=== PATIENT | female | born 1980 | race American Indian/Alaskan Native ===

== ENCOUNTER 2017-11-10 08:07 | Emergency (ER) | payer SELFPAY ==
[2017-11-10 08:59] LABS: Basophils % (Auto) 1.3 % (0.0-1.8); Eosinophils % (Auto) 1.7 % (0.0-4.3); Hematocrit 40.7 % (30.3-42.9); Hemoglobin 13.6 gm/dl (10.1-14.3); Mean Corpuscular HGB Conc 33 % (30-34); Mean Corpuscular Hemoglobin 29 pg (28-32); Mean Corpuscular Volume 88 fl (79-97); Red Blood Count 4.65 M/mm3 (3.65-5.03); Red Cell Distribution Width 14.3 % (13.2-15.2); White Blood Count 5.6 K/mm3 (4.5-11.0)
[2017-11-10 09:04] LABS: Bilirubin,Urine NEG (Negative); Blood,Urine LG (Negative); Ketones,Urine NEG (Negative); Leukocyte Esterase,Urine NEG (Negative); Mucus,Urine FEW /HPF; Nitrite,Urine NEG (Negative); Protein,Urine <15 mg/dL mg/dL (Negative); Urobilinogen,Urine < 2.0 mg/dL (<2.0)
[2017-11-10 09:10] LABS: Platelet Count 150 K/mm3 (140-440)
--- NOTE | 2017-11-10 09:22 | Emergency Department Report ---
ED Female HPI - General Chief complaint: Vaginal Bleeding Stated complaint: NAUSEA/VAGINAL BLEEDING Source: patient, RN notes reviewed Mode of arrival: Ambulatory Limitations: No Limitations - History of Present Illness Initial comments: This is a 37-year-old female who was previously unknown to this provider. She presents to the ER with intermittent crampy vaginal bleeding. She reports a positive home test in September. She reports no other care. She reports that she's had been having some bleeding intermittently, and thinks that she's had a miscarriage. Her bleeding today has been going on for days so , it is crampy, it does not radiate anywhere, has no exacerbating or relieving factors. MD Complaint: vaginal bleeding -: Gradual Location: suprapubic Radiation: non-radiating Severity: mild Quality: cramping Improves with: none Worsens with: none Are you Now?: No Associated Symptoms: vaginal bleeding. denies: vaginal discharge, nausea/ vomiting, fever/chills, headaches, loss of appetite, dysuria, shortness of breath, syncope, weakness - Related Data Sexually active: Yes Previous Rx's Medication Instructions Recorded Last Taken Type Acetaminophen/Codeine [Tylenol #3] 1 tab PO Q6H PRN #20 tab 08/11/15 Unknown Rx Cyclobenzaprine [Flexeril 10 MG 10 mg PO TID PRN #30 tablet 08/11/15 Unknown Rx TAB] Ibuprofen [Motrin] 600 mg PO Q8H PRN #30 tablet 08/11/15 Unknown Rx Diazepam Tab [Valium] 5 mg PO Q8H PRN #21 tablet 08/23/15 Unknown Rx HYDROcodone/APAP 5-325 [[place] 1 each PO Q6HR PRN #20 tablet 08/23/15 Unknown Rx 5/325] Allergies Allergy/AdvReac Type Severity Reaction Status Date / Time No Known Allergies Allergy Verified 08/11/15 10:23 ED Review of Systems ROS: Stated complaint: NAUSEA/VAGINAL BLEEDING Other details as noted in HPI ED Past Medical Hx - Past Medical History Previous Medical History?: Yes Hx Hypertension: Yes Hx Congestive Heart Failure: No Hx Diabetes: No Hx Deep Vein Thrombosis: No Hx Renal Disease: No Hx Sickle Cell Disease: No Hx Seizures: No Hx Asthma: No Hx COPD: No Hx HIV: No - Surgical History Past Surgical History?: No - Social History Smoking Status: Never Smoker Substance Use Type: None - Medications Home Medications: Home Medications Medication Instructions Recorded Confirmed Last Taken Type Acetaminophen/Codeine [Tylenol #3] 1 tab PO Q6H PRN #20 tab 08/11/15 Unknown Rx Cyclobenzaprine [Flexeril 10 MG 10 mg PO TID PRN #30 tablet 08/11/15 Unknown Rx TAB] Ibuprofen [Motrin] 600 mg PO Q8H PRN #30 tablet 08/11/15 Unknown Rx Diazepam Tab [Valium] 5 mg PO Q8H PRN #21 tablet 08/23/15 Unknown Rx HYDROcodone/APAP 5-325 [[place] 1 each PO Q6HR PRN #20 tablet 08/23/15 Unknown Rx 5/325] ED Physical Exam - General Limitations: No Limitations General appearance: alert, in no apparent distress - Head Head exam: Present: atraumatic, normocephalic - Eye Eye exam: Present: normal appearance, EOMI. Absent: nystagmus - ENT ENT exam: Present: normal exam, normal orophraynx, mucous membranes moist, normal external ear exam - Neck Neck exam: Present: normal inspection, full ROM - Respiratory Respiratory exam: Present: normal lung sounds bilaterally. Absent: respiratory distress - Cardiovascular Cardiovascular Exam: Present: regular rate, normal rhythm, normal heart sounds. Absent: systolic murmur, diastolic murmur, rubs, gallop - GI/Abdominal GI/Abdominal exam: Present: soft, normal bowel sounds. Absent: distended, tenderness, guarding, rebound, rigid, pulsatile mass - External exam: Present: normal external exam Speculum exam: Present: normal speculum exam, vaginal bleeding. Absent: foreign body Bi-manual exam: Present: normal bi-manual exam, other (escorted by nurse Yana Killian). Absent: cervical motion tendernes, adnexal tenderness, adnexal mass, uterine enlargement, uterine tenderness - Extremities Exam Extremities exam: Present: normal inspection, full ROM, normal capillary refill. Absent: pedal edema, joint swelling, calf tenderness - Back Exam Back exam: Present: normal inspection, full ROM. Absent: tenderness, CVA tenderness (R), CVA tenderness (L), muscle spasm, paraspinal tenderness, vertebral tenderness - Neurological Exam Neurological exam: Present: alert, oriented X3, CN II-XII intact, other ( Extraocular movements intact. Tongue midline. No facial droop. Facial sensation intact to light touch in the V1, V2, V3 distribution bilaterally. 5 and 5 strength in 4 extremities.. Sensation is intact to light touch in 4 extremities.). Absent: motor sensory deficit - Psychiatric Psychiatric exam: Present: normal affect, normal mood - Skin Skin exam: Present: warm, dry, intact, normal color. Absent: rash ED Course Vital Signs 11/10/17 11/10/17 11/10/17 08:15 09:19 09:29 Temperature 98.3 F 98.6 F Pulse Rate 86 85 Respiratory 16 18 18 Rate Blood Pressure 170/111 Blood Pressure 167/104 [Left] O2 Sat by Pulse 100 100 100 Oximetry 11/10/17 10:25 Temperature Pulse Rate Respiratory 18 Rate Blood Pressure Blood Pressure [Left] O2 Sat by Pulse Oximetry - Reevaluation(s) Reevaluation #1: 11/10/17 11:03 Patient reports she is not delivered a baby within the past 2 months, and she also reports no second or third trimester miscarriages within the past 2 months. Elevated blood pressure is appreciated, however her presentation today is not consistent with preeclampsia. She can follow up with outpatient primary care doctor for her elevated blood pressure. ED Medical Decision Making - Lab Data Result diagrams: 11/10/17 08:37 Vital Signs 11/10/17 11/10/17 11/10/17 08:15 09:19 09:29 Temperature 98.3 F 98.6 F Pulse Rate 86 85 Respiratory 16 18 18 Rate Blood Pressure 170/111 Blood Pressure 167/104 [Left] O2 Sat by Pulse 100 100 100 Oximetry 11/10/17 10:25 Temperature Pulse Rate Respiratory 18 Rate Blood Pressure Blood Pressure [Left] O2 Sat by Pulse Oximetry Lab Results 11/10/17 11/10/17 11/10/17 Range/Units 08:37 08:37 08:37 WBC 5.6 (4.5-11.0) K/mm3 RBC 4.65 (3.65-5.03) M/mm3 Hgb 13.6 (10.1-14.3) gm/dl Hct 40.7 (30.3-42.9) % MCV 88 (79-97) fl MCH 29 (28-32) pg MCHC 33 (30-34) % RDW 14.3 (13.2-15.2) % Plt Count 150 (140-440) K/mm3 Lymph % (Auto) 40.1 H (13.4-35.0) % [place] % (Auto) 8.1 H (0.0-7.3) % Eos % (Auto) 1.7 (0.0-4.3) % Baso % (Auto) 1.3 (0.0-1.8) % Lymph # 2.3 (1.2-5.4) K/mm3 [place] # 0.5 (0.0-0.8) K/mm3 Eos # 0.1 (0.0-0.4) K/mm3 Baso # 0.1 (0.0-0.1) K/mm3 Seg Neutrophils % 48.8 (40.0-70.0) % Seg Neutrophils # 2.8 (1.8-7.7) K/mm3 HCG, Quant < 2 (0-4) mIU/mL Urine Color (Yellow) Urine Turbidity (Clear) Urine pH (5.0-7.0) Ur Specific [place] (1.003-1.030) Urine Protein (Negative) mg/dL Urine Glucose (UA) (Negative) mg/dL Urine Ketones (Negative) mg/dL Urine Blood (Negative) Urine Nitrite (Negative) Urine Bilirubin (Negative) Urine Urobilinogen (<2.0) mg/dL Ur Leukocyte Esterase (Negative) Urine WBC (Auto) (0.0-6.0) /HPF Urine RBC (Auto) (0.0-6.0) /HPF U Epithel Cells (Auto) (0-13.0) /HPF Urine Mucus /HPF Blood Type O NEGATIVE Antibody Screen Negative 11/10/17 Range/Units 08:50 WBC (4.5-11.0) K/mm3 RBC (3.65-5.03) M/mm3 Hgb (10.1-14.3) gm/dl Hct (30.3-42.9) % MCV (79-97) fl MCH (28-32) pg MCHC (30-34) % RDW (13.2-15.2) % Plt Count (140-440) K/mm3 Lymph % (Auto) (13.4-35.0) % [place] % (Auto) (0.0-7.3) % Eos % (Auto) (0.0-4.3) % Baso % (Auto) (0.0-1.8) % Lymph # (1.2-5.4) K/mm3 [place] # (0.0-0.8) K/mm3 Eos # (0.0-0.4) K/mm3 Baso # (0.0-0.1) K/mm3 Seg Neutrophils % (40.0-70.0) % Seg Neutrophils # (1.8-7.7) K/mm3 HCG, Quant (0-4) mIU/mL Urine Color Yellow (Yellow) Urine Turbidity Clear (Clear) Urine pH 6.0 (5.0-7.0) Ur Specific [place] 1.006 (1.003-1.030) Urine Protein <15 mg/dl (Negative) mg/dL Urine Glucose (UA) Neg (Negative) mg/dL Urine Ketones Neg (Negative) mg/dL Urine Blood Lg (Negative) Urine Nitrite Neg (Negative) Urine Bilirubin Neg (Negative) Urine Urobilinogen < 2.0 (<2.0) mg/dL Ur Leukocyte Esterase Neg (Negative) Urine WBC (Auto) 2.0 (0.0-6.0) /HPF Urine RBC (Auto) 87.0 (0.0-6.0) /HPF U Epithel Cells (Auto) 1.0 (0-13.0) /HPF Urine Mucus Few /HPF Blood Type Antibody Screen - Radiology Data Radiology results: report reviewed, image reviewed Pelvic ultrasound demonstrates uterine fibroids, otherwise unremarkable pelvic exam, normal ovarian flow, no evidence of torsion, no retained products of conception - Medical Decision Making Differential diagnosis, including but not limited to: Menstruation, fibroids, retained products of conception Assessment and plan: 37-year-old female with vaginal bleeding and mild cramps. She is afebrile with reassuring vital signs with the exception of mildly elevated blood pressure. She is not today, and pelvic ultrasound is unremarkable. She felt improved after ibuprofen, and will be instructed to follow-up with outpatient gynecology. Doubt pelvic inflammatory disease given lack of gynecologic tenderness. Urinalysis is not Consistent with urinary tract infection, history not consistent with urinary tract infection. Critical care attestation.: If time is entered above; I have spent that time in minutes in the direct care of this critically ill patient, excluding procedure time. ED Disposition Clinical Impression: Menstruation, Elevated blood pressure reading Disposition: DC-01 TO HOME OR SELFCARE Is pt being admited?: No Does the pt Need Aspirin: No Condition: Stable Additional Instructions: Cultures were sent today, results will be available in the next 3-5 days. Have a hand assembler contact the medical records department to obtain culture results. Follow up with a primary care doctor or hand assembler within the next month. Please note that blood pressure was elevated, and this should be followed up by her primary care doctor as recommended. Please note that long- term complications of hypertension and elevated blood pressure includes stroke, heart attack, disability, , paralysis, loss of quality of life. Return to the ER right away with new pain, worsened pain, migration of pain, fevers, chills, lethargy, irritability, projectile vomiting, change in mental status, confusion, inability to tolerate liquid feeds, bleeding more than 2 pads soaked per hour, dizziness, lightheadedness, loss of consciousness. Referrals: ART OLMSTEAD MD [Primary Care Provider] - 3-5 Days [facility] [Provider Group] - 3-5 Days [facility] [Provider Group] - 3-5 Days [facility] [Provider Group] - 3-5 Days
[2017-11-10] MEDS ORDERED: MOTRIN PO ONE ×2 (10:22→10:24)
--- NOTE | 2017-11-10 10:29 | Ultrasound Report ---
ULTRASOUND PELVIS DUPLEX DOPPLER COMPLETE ULTRASOUND TRANSVAGINAL HISTORY: Vaginal bleeding, abdominal cramping. COMPARISON: None. TECHNIQUE: Transabdominal and transvaginal ultrasound with color and spectral doppler interrogation. FINDINGS: Uterus: The uterus is anteverted. The uterus measures 7.9 x 4.2 x 5.0 cm. A 1.3 cm intramural fibroid is noted in the anterior wall. A 0.9 cm intramural fibroid is identified in the posterior wall. The cervix is unremarkable. Endometrium: The endometrium measures 4 mm. No intrauterine is visualized. Right ovary: 3.1 x 1.8 x 2.9 cm. No focal abnormality. Left ovary: 1.5 x 2.0 x 4.5 cm. No focal abnormality. No pelvic fluid or mass is identified. Spectral Doppler interrogation demonstrates arterial flow to both ovaries. IMPRESSION: Small uterine fibroids as described. Otherwise, unremarkable pelvic exam.
[2017-11-10 11:15] VITALS: BP 139/100
== END 2017-11-10 11:17 | disposition home or self-care (01) ==
LOC: ED 08:07
DX: N93.9 Abnormal uterine and vaginal bleeding, unspecified (principal); I10 Essential (primary) hypertension; R10.2 Pelvic and perineal pain
CPT/HCPCS: 36415; 76830; 81001; 84702; 85025; 86850; 86900; 86901; 87210; 93975

== ENCOUNTER 2017-12-29 09:31 | Emergency (ER) | payer BC ==
[2017-12-29] MEDS ORDERED: ASPIRIN PO ONE (10:51)
[2017-12-29 11:10] LABS: Basophils # (Auto) 0.1 K/mm3 (0.0-0.1); Basophils % (Auto) 1.3 % (0.0-1.8); Eosinophils # (Auto) 0.1 K/mm3 (0.0-0.4); Eosinophils % (Auto) 2.5 % (0.0-4.3); Hematocrit 39.4 % (30.3-42.9); Lymphocytes # (Auto) 2.5 K/mm3 (1.2-5.4); Lymphocytes % (Auto) 44.1 % (13.4-35.0); Mean Corpuscular HGB Conc 33 % (30-34); Mean Corpuscular Hemoglobin 29 pg (28-32); Mean Corpuscular Volume 87 fl (79-97); Monocytes # (Auto) 0.3 K/mm3 (0.0-0.8); Monocytes % (Auto) 6.2 % (0.0-7.3); Red Blood Count 4.55 M/mm3 (3.65-5.03); Red Cell Distribution Width 15.3 % (13.2-15.2)
[2017-12-29 11:28] LABS: BUN/Creatinine Ratio 14; Blood Urea Nitrogen 10 mg/dL (7-17); Calcium 8.8 mg/dL (8.4-10.2); Hemolysis Index 4
[2017-12-29 11:54] LABS: Platelet Count 151 K/mm3 (140-440)
--- NOTE | 2017-12-29 23:34 | Emergency Department Report ---
ED Chest Pain HPI - General Chief Complaint: Chest Pain Stated Complaint: CHEST PAIN Time Seen by Provider: 12/29/17 20:05 Source: patient Mode of arrival: Ambulatory Limitations: No Limitations - History of Present Illness Initial Comments: This is a 37-year-old female with a history of hypertension who comes in today for evaluation of left-sided chest pain with radiation to the left arm. She states that the chest pain began about 2 days ago. He states that her left arm has been hurting for over one month. She describes the chest pain as dull and intermittent. She also admits to some nausea which has been going on for quite some time and she reports having loose stools last night. She admits to some shortness of breath as well with exertion. She also states that she may have pink eye in the left eye. She woke up with it draining. She also states that she is not sure whether she is . She denies headache, fever, abdominal pain, pain in the other extremities. She denies any acute urinary symptoms. -: Gradual, month(s) (One) Onset: during rest Pain Location: left chest Pain Radiation: LUE Severity: mild Severity scale (0 -10): 8 Quality: dull Consistency: intermittent Improves With: nothing Worsens With: nothing re: nausea Other Symptoms: cough. denies: fever, syncope, rash, acid taste in mouth, leg swelling, palpitations Treatments Prior to Arrival: none - Related Data Previous Rx's Medication Instructions Recorded Last Taken Type Acetaminophen/Codeine [Tylenol #3] 1 tab PO Q6H PRN #20 tab 08/11/15 Unknown Rx Ibuprofen [Motrin] 600 mg PO Q8H PRN #30 tablet 08/11/15 Unknown Rx Diazepam Tab [Valium] 5 mg PO Q8H PRN #21 tablet 08/23/15 Unknown Rx Cyclobenzaprine [Flexeril 10 MG 10 mg PO TID PRN #30 tablet 12/29/17 Unknown Rx TAB] HYDROcodone/APAP 5-325 [[place] 1 each PO Q6HR PRN #20 tablet 12/29/17 Unknown Rx 5-325 mg TAB] Sulfacetm Na/Prednisol AC 2 drop OP Q4HR #1 bottle 12/29/17 Unknown Rx [Blephamide Eye Drops 10/0.2%] Allergies Allergy/AdvReac Type Severity Reaction Status Date / Time No Known Allergies Allergy Verified 08/11/15 10:23 Heart Score - HEART Score History: Slightly suspicious EKG: Normal Age: < 45 Risk factors: No known risk factors Troponin: < normal limit HEART Score: 0 ED Review of Systems ROS: Stated complaint: CHEST PAIN Other details as noted in HPI Constitutional: see HPI. denies: chills, fever Eyes: eye discharge (left). denies: eye pain, vision change ENT: denies: ear pain, throat pain Respiratory: no symptoms reported. denies: cough, shortness of breath, wheezing Cardiovascular: as per HPI, chest pain. denies: palpitations Endocrine: no symptoms reported Gastrointestinal: nausea, diarrhea. denies: abdominal pain Genitourinary: denies: urgency, dysuria, discharge Musculoskeletal: denies: back pain, joint swelling, arthralgia Skin: denies: rash, lesions Neurological: denies: headache, weakness, paresthesias Psychiatric: denies: anxiety, depression Hematological/Lymphatic: denies: easy bleeding, easy bruising ED Past Medical Hx - Past Medical History Previous Medical History?: Yes Hx Hypertension: Yes Hx Congestive Heart Failure: No Hx Diabetes: No Hx Deep Vein Thrombosis: No Hx Renal Disease: No Hx Sickle Cell Disease: No Hx Seizures: No Hx Asthma: No Hx COPD: No Hx HIV: No - Surgical History Past Surgical History?: No - Social History Smoking Status: Never Smoker Substance Use Type: None - Medications Home Medications: Home Medications Medication Instructions Recorded Confirmed Last Taken Type Acetaminophen/Codeine [Tylenol #3] 1 tab PO Q6H PRN #20 tab 08/11/15 Unknown Rx Ibuprofen [Motrin] 600 mg PO Q8H PRN #30 tablet 08/11/15 Unknown Rx Diazepam Tab [Valium] 5 mg PO Q8H PRN #21 tablet 08/23/15 Unknown Rx Cyclobenzaprine [Flexeril 10 MG 10 mg PO TID PRN #30 tablet 12/29/17 Unknown Rx TAB] HYDROcodone/APAP 5-325 [[place] 1 each PO Q6HR PRN #20 tablet 12/29/17 Unknown Rx 5-325 mg TAB] Sulfacetm Na/Prednisol AC 2 drop OP Q4HR #1 bottle 12/29/17 Unknown Rx [Blephamide Eye Drops 10/0.2%] ED Physical Exam - General Limitations: No Limitations General appearance: alert, in no apparent distress - Head Head exam: Present: atraumatic - Eye Eye exam: Present: normal appearance, PERRL, EOMI, other Pupils: Present: normal accommodation - ENT ENT exam: Present: normal exam - Neck Neck exam: Present: normal inspection - Respiratory Respiratory exam: Present: normal lung sounds bilaterally. Absent: respiratory distress, wheezes, rales, rhonchi - Cardiovascular Cardiovascular Exam: Present: regular rate, normal rhythm, normal heart sounds - GI/Abdominal GI/Abdominal exam: Present: soft, normal bowel sounds. Absent: distended, tenderness, guarding, rebound, rigid - Rectal Rectal exam: Present: deferred - Extremities Exam Extremities exam: Present: normal inspection, full ROM - Back Exam Back exam: Present: normal inspection, full ROM - Neurological Exam Neurological exam: Present: alert, oriented X3, CN II-XII intact - Psychiatric Psychiatric exam: Present: normal affect, normal mood - Skin Skin exam: Present: warm, dry, intact, normal color ED Course Vital Signs 12/29/17 12/29/17 12/29/17 10:48 19:56 20:00 Temperature 98.7 F Pulse Rate 87 73 Respiratory 16 19 Rate Blood Pressure 136/105 125/81 O2 Sat by Pulse 99 98 99 Oximetry 12/29/17 12/29/17 12/29/17 20:14 20:16 20:30 Temperature Pulse Rate 75 76 Respiratory 18 20 20 Rate Blood Pressure 125/81 132/88 O2 Sat by Pulse 99 98 Oximetry 12/29/17 12/29/17 12/29/17 20:46 21:00 21:16 Temperature Pulse Rate 81 75 87 Respiratory 21 17 12 Rate Blood Pressure 132/88 138/88 138/88 O2 Sat by Pulse 98 98 100 Oximetry 12/29/17 12/29/17 12/29/17 21:30 21:46 22:00 Temperature Pulse Rate 77 72 92 H Respiratory 19 20 20 Rate Blood Pressure 142/91 142/91 135/92 O2 Sat by Pulse 100 98 98 Oximetry 12/29/17 12/29/17 12/29/17 22:16 22:30 22:46 Temperature Pulse Rate 71 94 H 79 Respiratory 18 24 22 Rate Blood Pressure 135/92 131/83 131/83 O2 Sat by Pulse 99 96 96 Oximetry 02/04/1012/29/17 12/29/17 23:00 23:16 23:30 Temperature Pulse Rate 78 81 83 Respiratory 14 16 14 Rate Blood Pressure 128/91 128/91 131/90 O2 Sat by Pulse 99 Oximetry - Reevaluation(s) Reevaluation #1: 12/29/17 23:36 I explained to the patient that she is not having any kind of acute coronary event. All 3 sets of cardiac enzymes are normal. I advised her to follow up with her primary care physician of choice. With regards to her left eye drainage from this morning, I'll go ahead and give her prescription for some antibiotic drops. With regards to her chest pain, we will start with an anti- inflammatory med and a muscle relaxer. She is to follow-up with her primary care doctor. She expresses understanding. ED Medical Decision Making - Lab Data Result diagrams: 12/29/17 10:57 12/29/17 10:57 Critical care attestation.: If time is entered above; I have spent that time in minutes in the direct care of this critically ill patient, excluding procedure time. ED Disposition Clinical Impression: Chest pain Qualifiers: Chest pain type: other chest pain Qualified Code(s): R07.89 - Other chest pain Conjunctivitis, left eye Qualifiers: Conjunctivitis type: acute Acute conjunctivitis type: bacterial Qualified Code( s): H10.32 - Unspecified acute conjunctivitis, left eye Disposition: DC-01 TO HOME OR SELFCARE Is pt being admited?: No Does the pt Need Aspirin: No Condition: Stable Instructions: Chest Pain (ED), Conjunctivitis (ED), Costochondritis (ED) Additional Instructions: Rest, fluids, follow up with her primary care doctor, return as needed if you feel like having any kind of new symptoms or worsening or life-threatening emergencies, call 911. Medications as prescribed. Prescriptions: Cyclobenzaprine [Flexeril 10 MG TAB] 10 mg PO TID PRN #30 tablet PRN Reason: Muscle Spasm HYDROcodone/APAP 5-325 [[place] 5-325 mg TAB] 1 each PO Q6HR PRN #20 tablet PRN Reason: Pain Sulfacetm Na/Prednisol AC [Blephamide Eye Drops 10/0.2%] 2 drop OP Q4HR #1 bottle Referrals: PRIMARY CARE,MD [Primary Care Provider] - 3-5 Days
[2017-12-29] MEDS ORDERED: TORADOL IM ONE (23:47)
[2017-12-30 00:19] VITALS: BP 131/90
[2017-12-30 00:33] LABS: HCG Qualitative,Urine Negative (Negative)
== END 2017-12-30 01:06 | disposition home or self-care (01) ==
LOC: ED 09:31
DX: H10.9 Unspecified conjunctivitis (principal); R07.89 Other chest pain; I10 Essential (primary) hypertension
CPT/HCPCS: 36415; 80048; 81025; 84484; 85025; 93005; 93010; 96372; 99284; J1885